=== PATIENT | female | born 1935 | race Caucasian/White ===

== ENCOUNTER 2017-03-08 15:18 | Emergency (ER) | payer SELFPAY ==
[~2017-03-08] VITALS: Wt 40.5 kg
--- NOTE | 2017-03-08 15:32 | ERD ---
ER Documentation Chief Complaint Date/Time DATE: 03/08/17 TIME: 15:32 Chief Complaint LEFT EARACHE SINCE LAST NIGHT, HEARING LOSS RIGHT EAR X1YEAR HPI This is an 81-year-old female who presents to the emergency room for evaluation of ear pain. History is obtained from the patient's daughter who states that this patient has had decreased hearing in the right ear for 1 year, and states that this patient also has pain in the left ear and the left ear pain has been present for one days duration. This patient denies any trauma to the ER, she denies any water exposure to the ER, denies any fevers associated with this ear pain. She denies any discharge from the ear and came to the emergency room today for evaluation .the patient denies any aggravating or relieving factors for her symptoms at this time ROS All systems reviewed and are negative except as per history of present illness. Allergies Allergies: Coded Allergies: No Known Allergy (Unverified , 03/08/17) PMhx/Soc Medical and Surgical Hx: pt denies Medical Hx, pt denies Surgical Hx Hx Alcohol Use: No Hx Substance Use: No Hx Tobacco Use: No Smoking Status: Never smoker Physical Exam Vitals Vital Signs Date Time Temp Pulse Resp B/P Pulse Ox O2 Delivery O2 Flow Rate FiO2 03/08/17 15:21 98.8 103 20 206/84 99 Physical Exam Const: Frail-appearing elderly female, pleasant affect Head: Atraumatic Eyes: Normal Conjunctiva ENT: Left tympanic membrane with mild erythema, right tympanic membrane within normal limits, no ruptured tympanic membrane, no mastoid bone tenderness , normal External Ears, Nose and Mouth. Neck: Full range of motion..~ No meningismus. Resp: Clear to auscultation bilaterally Cardio: Regular rate and rhythm, no murmurs Abd: Soft, non tender, non distended. Normal bowel sounds Skin: No petechiae or rashes Back: No midline or flank tenderness Ext: No cyanosis, or edema Neur: Awake and alert Psych: Normal Mood and Affect Results 24 hrs Current Medications Medications (Trade) Dose Ordered Sig/Risa Route PRN Reason Start Time Stop Time Status Last Admin Dose Admin Amoxicillin (Amoxicillin) 500 mg ONCE ONCE PO 03/08/17 16:00 03/08/17 16:01 Procedures/MDM This 81-year-old female presents to the emergency room for evaluation of ear pain and decreased hearing. This patient has had decreased hearing in the right ear for 1 year, and has had pain in the left ear for 1 day. I evaluated this patient and she did have mild erythema in the left ear. Given her symptoms I feel it is appropriate to treat for otitis media even though there is no gross infection and only erythema. As far as the patient's decreased hearing I advised him that they need to follow-up with an ear, nose, and throat specialist. I will give him a referral at this time for ENT specialist. The patient will be discharged home with a prescription for amoxicillin at this time Departure Diagnosis: Primary Impression: Otitis media, left Additional Impression: Decreased hearing of both ears Condition: Stable SOL SARABIA DO March 08, 2017 15:32
[2017-03-08] MEDS ORDERED: AMO500 PO (15:36)
[2017-03-08] MEDS ORDERED: AMOXICILLIN 500 MG CAP PO ONE (16:00)
== END 2017-03-08 16:35 | disposition home or self-care (01) ==
LOC: E/R 15:18
DX: H66.92 Otitis media, unspecified, left ear (principal); H91.93 Unspecified hearing loss, bilateral
CPT/HCPCS: 99283